=== PATIENT | male | born 1955 | race Caucasian/White ===

== ENCOUNTER 2017-03-22 22:38 | Observation (INO) | payer OTHER ==
[~2017-03-22] VITALS: Ht 190.5 cm; Wt 78.0 kg
[2017-03-22 22:47] VITALS: BP 88/52; PULSE 74; RESP 16; O2SAT 97
[2017-03-22] MEDS ORDERED: SODIUM CHLOR 0.9% 1000 ML INJ 1,000 ML IV ONE ×2 (23:01→23:15)
[2017-03-22 23:12] VITALS: BP 98/51
[2017-03-22] MEDS ORDERED: SODIUM CHLORIDE 0.9% FLUSH 10 ML FLUSH IVF PRN (23:15)
[2017-03-22] MEDS ORDERED: ONDANSETRON HCL 4 MG/2 ML VIAL IVP ONE (23:15)
[2017-03-22 23:20] VITALS: RESP 18
--- NOTE | 2017-03-22 23:31 | RADRPT ---
EXAM DATE/TIME: 03/22/2017 23:17 [facility] COMPARISON: No previous studies available for comparison. INDICATIONS : Dizziness. RADIATION DOSE: 43.28 CTDIvol (mGy) MEDICAL HISTORY : None SURGICAL HISTORY : None. ENCOUNTER: Initial ACUITY: 1 day PAIN SCALE: 0/10 LOCATION: cranial TECHNIQUE: Multiple contiguous axial images were obtained of the head. Using automated exposure control and adj ustment of the mA and/or kV according to patient size, radiation dose was kept as low as reasonably a chievable to obtain optimal diagnostic quality images. FINDINGS: CEREBRUM: There is mild atrophy. The ventricles are normal for age. No evidence of midline shift, mass lesion, hemorrhage or acute infarction. No extra-axial fluid collections are seen. POSTERIOR FOSSA: The cerebellum and brainstem are intact. The 4th ventricle is midline. The cerebellopontine angle i s unremarkable. EXTRACRANIAL: The visualized portion of the orbits is intact. Artificial globe on the left. SKULL: The calvaria is intact. No evidence of skull fracture. CONCLUSION: No acute intracranial abnormality. Mild atrophy. Harrison Mcnulty MD on March 22, 2017 at 23:28 Board Certified Radiologist. This report was verified electronically.
[2017-03-22 23:43] LABS: AUTOMATED NEUTROPHIL # 5.4 TH/MM3 (1.8-7.7); BASOPHIL % 0.4 % (0.0-2.0); EOSINOPHIL # 0.1 TH/MM3 (0-0.4); HEMATOCRIT 43.1 % (39.0-51.0); HEMO FLAGS DIFF FINAL; LYMPH % 26.3 % (9.0-44.0); LYMPHOCYTE # 2.3 TH/MM3 (1.0-4.8); MEAN CELL VOLUME 86.9 FL (80.0-100.0); MEAN CORPUSCULAR HEMOGLOBIN 29.4 PG (27.0-34.0); MEAN CORPUSCULAR HGB CONC 33.8 % (32.0-36.0); MONO % 10.9 % (0.0-8.0); NEUT % 61.4 % (16.0-70.0); PLATELET COUNT 149 TH/MM3 (150-450); RED BLOOD COUNT 4.96 MIL/MM3 (4.50-5.90); RED CELL DISTRIBUTION WIDTH 13.5 % (11.6-17.2); WHITE BLOOD COUNT 8.9 TH/MM3 (4.0-11.0)
[2017-03-22 23:48] LABS: APTT (PATIENT) 24.1 SEC (24.3-30.1); PROTHROMBIN TIME - PATIENT 11.5 SEC (9.8-11.6)
[2017-03-22 23:53] VITALS: BP 99/56; PULSE 75; RESP 16; TEMP 97.9; O2SAT 98
--- NOTE | 2017-03-22 23:56 | RADRPT ---
EXAM DATE/TIME: 03/22/2017 23:19 [facility] COMPARISON: No previous studies available for comparison. INDICATIONS : Syncopal episode. MEDICAL HISTORY : None. SURGICAL HISTORY : None. ENCOUNTER: Initial ACUITY: 1 day PAIN SCORE: 0/10 LOCATION: Bilateral chest FINDINGS: A single view of the chest demonstrates the lungs to be symmetrically aerated without evidence of mas s, infiltrate or effusion. The cardiomediastinal contours are unremarkable. Healed fractures of the right fourth, fifth and sixth ribs. CONCLUSION: No evidence of acute cardiopulmonary disease. Old right rib fractures. Harrison Mcnulty MD on March 22, 2017 at 23:53 Board Certified Radiologist. This report was verified electronically.
[2017-03-23] VITALS (7 sets, daily range): BP systolic 114–143; BP diastolic 55–78; PULSE 77–84; RESP 18–20; TEMP 97.2–97.6; O2SAT 95–98
[2017-03-23 00:04] LABS: ALT (GPT) 35 U/L (12-78); ANION GAP 16 MEQ/L (5-15); AST (GOT) 28 U/L (15-37); BICARBONATE 18.2 MEQ/L (21.0-32.0); BLOOD UREA NITROGEN 29 MG/DL (7-18); CHLORIDE 111 MEQ/L (98-107); GLOMERULAR FILTRATION RATE 38 ML/MIN (>89); POTASSIUM 3.5 MEQ/L (3.5-5.1); SODIUM (NA) 145 MEQ/L (136-145)
[2017-03-23 00:08] LABS: ALKALINE PHOSPHATASE 53 U/L (45-117); CREATINE KINASE 421 U/L (39-308); TOTAL BILIRUBIN ADULT 0.7 MG/DL (0.2-1.0)
[2017-03-23 00:27] LABS: CKMB 3.7 NG/ML (0.5-3.6)
[2017-03-23] MEDS ORDERED: SODIUM CHLOR 0.9% 1000 ML INJ 1,000 ML IV ONE (00:30)
--- NOTE | 2017-03-23 00:41 | PD ---
HPI Chief Complaint: Syncope/Near-Syncope Time Seen by Provider: 23:01 Travel History International Travel<30 days: No Contact w/Intl Traveler<30days: No Traveled to known affect area: No History of Present Illness HPI 61-year-old male presents to the emergency department by EMS transport from his daughter's wedding where he was witnessed to have a syncopal episode. No seizure activity was noted. No trauma was noted. Patient reportedly has been very anxious about the event has had poor oral intake and poor dietary intake and today was drinking alcohol when he complained while sitting down of not feeling well and sure thereafter he was witnessed to have had a syncopal episode. Patient was assisted to the floor by bystanders. estimates that he was unresponsive although breathing for several minutes may be up to 5-10. EMS arrived and reported that there was no injury. Patient was noted to be hypotensive and was given a liter of normal saline in route to the hospital. According to the patient had a similar episode approximately 4 months ago in November. [facility] Past Medical History Immunizations Current: Yes Tetanus Vaccination: Unknown Influenza Vaccination: No Social History Alcohol Use: Yes (socially) Tobacco Use: No Substance Use: No Allergies-Medications (Allergen,Severity, Reaction): Coded Allergies: Codeine (Verified Allergy, Severe, Arthritis, 03/23/17) Reported Meds & Prescriptions Reported Meds & Active Scripts Active No Active Prescriptions or Reported Medications Physical Exam Narrative GENERAL: Well-developed ill-appearing male in no respiratory distress; GCS 15 SKIN: Warm and dry. HEAD: Atraumatic. Normocephalic. EYES: Pupils equal and round. No scleral icterus. No injection or drainage. ENT: No nasal bleeding or discharge. Mucous membranes pink and moist. NECK: Trachea midline. No JVD. CARDIOVASCULAR: Regular rate and rhythm. RESPIRATORY: No accessory muscle use. Clear to auscultation. Breath sounds equal bilaterally. GASTROINTESTINAL: Abdomen soft, non-tender, nondistended. Hepatic and splenic margins not palpable. MUSCULOSKELETAL: Extremities without clubbing, cyanosis, or edema. No obvious deformities. NEUROLOGICAL: Awake and alert. No obvious cranial nerve deficits. Motor grossly within normal limits. Five out of 5 muscle strength in the arms and legs. Normal speech. PSYCHIATRIC: Appropriate mood and affect; insight and judgment normal. Data Data Last Documented VS Vital Signs Date Time Temp Pulse Resp B/P Pulse Ox O2 Delivery O2 Flow Rate FiO2 03/23/17 00:59 114/58 03/22/17 23:53 97.9 75 16 98 Orders Electrocardiogram (03/22/17:) Complete Blood Count With Diff (03/22/17 23:) Comprehensive Metabolic Panel (03/22/17:) Magnesium (Mg) (03/22/17 23:01) Ckmb (Isoenzyme) Profile (03/22/17:) Troponin I (03/22/17:) Act Partial Throm Time (Ptt) (03/22/17:) Prothrombin Time / Inr (Pt) (03/22/17:) Ua Includes Microscopic (03/22/17:) Chest, Single Ap (03/22/17:) Ct Brain W/O Iv Contrast(Rout) (03/22/17:) Blood Glucose (03/22/17:) Ecg Monitoring (03/22/17:) Iv Access Insert/Monitor (03/22/17:) Oximetry (03/22/17 23:) Ondansetron Inj (Zofran Inj) (03/22/17 23:15) Sodium Chloride 0.9% Flush (Ns Flush) (03/22/17 23:15) Sodium Chlor 0.9% 1000 Ml Inj (Ns 1000 M (03/22/17 23:01) Sodium Chlor 0.9% 1000 Ml Inj (Ns 1000 M (03/22/17 23:15) Alcohol (Ethanol) (03/22/17 23:01) CKMB (03/22/17 23:05) CKMB% (03/22/17 23:05) Sodium Chlor 0.9% 1000 Ml Inj (Ns 1000 M (03/23/17 00:30) Lactic Acid (03/23/17 00:22) Drug Screen, Random Urine (03/23/17 00:25) Place In Observation (03/23/17 ) Code Status (03/23/17 01:09) Vital Signs (Adult) Q4H (03/23/17 01:09) Activity Oob With Assistance (03/23/17 01:09) Otologist / Telemetry .CONTINUOUS (03/23/17 01:09) Diet Heart Healthy (03/23/17 Breakfast) Sodium Chloride 0.9% Flush (Ns Flush) (03/23/17 01:15) Sodium Chloride 0.9% Flush (Ns Flush) (03/23/17 09:00) Acetaminophen (Tylenol) (03/23/17 01:15) Ondansetron Inj (Zofran Inj) (03/23/17 01:15) Magnesium Hydroxide Liq (Milk Of Magnesi (03/23/17 01:15) Basic Metabolic Panel (Bmp) (03/24/17 06:00) Complete Blood Count With Diff (03/24/17 06:00) Electrocardiogram (03/23/17 01:09) Pt Request For Service (03/23/17 01:09) Scd Bilateral/Knee High BERYL.BID (03/23/17 01:09) Naloxone Inj (Narcan Inj) (03/23/17 01:15) 1/2 Ns + Kcl 20 Meq Inj (1/2 Ns + Kcl 20 (03/23/17 01:15) Echo 2d Comp W/Dopp(Routine) (03/23/17 ) Holter Monitor Recording (03/23/17 ) Us Carotid Arteries Comp Bilat (03/23/17 ) Thyroid Stimulating Hormone (03/23/17 01:14) Free Thyroxine (T4) (03/23/17 01:14) Rapid Plasma Regin (Rpr) W Ttr (03/23/17 01:14) Vitamin B12 (03/23/17 01:14) Folate, Serum (03/23/17 01:14) Ammonia (03/23/17 01:14) Lorazepam Inj (Ativan Inj) (03/23/17 01:15) Eeg Study (03/23/17 ) Admit Order (Ed Use Only) (03/23/17 ) ^ Saline Lock (03/23/17 01:22) Resp Oxygen Maksim C Titrat 1-4 L (03/23/17 ) Notify Dr: Other (03/23/17 01:22) Sodium Chloride 0.9% Flush (Ns Flush) (03/23/17 09:00) Sodium Chloride 0.9% Flush (Ns Flush) (03/23/17 01:30) Labs Laboratory Tests Test 03/22/17 03/23/17 03/23/17 23:05 00:45 01:00 Prothrombin Time 11.5 SEC Prothromb Time International 1.0 RATIO Ratio Activated Partial 24.1 SEC Thromboplast Time White Blood Count 8.9 TH/MM3 Red Blood Count 4.96 MIL/MM3 Hemoglobin 14.6 GM/DL Hematocrit 43.1 % Mean Corpuscular Volume 86.9 FL Mean Corpuscular Hemoglobin 29.4 PG Mean Corpuscular Hemoglobin 33.8 % Concent Red Cell Distribution Width 13.5 % Platelet Count 149 TH/MM3 Mean Platelet Volume 8.2 FL Neutrophils (%) (Auto) 61.4 % Lymphocytes (%) (Auto) 26.3 % Monocytes (%) (Auto) 10.9 % Eosinophils (%) (Auto) 1.0 % Basophils (%) (Auto) 0.4 % Neutrophils # (Auto) 5.4 TH/MM3 Lymphocytes # (Auto) 2.3 TH/MM3 Monocytes # (Auto) 1.0 TH/MM3 Eosinophils # (Auto) 0.1 TH/MM3 Basophils # (Auto) 0.0 TH/MM3 CBC Comment DIFF FINAL Differential Comment Sodium Level 145 MEQ/L Potassium Level 3.5 MEQ/L Chloride Level 111 MEQ/L Carbon Dioxide Level 18.2 MEQ/L Anion Gap 16 MEQ/L Blood Urea Nitrogen 29 MG/DL Creatinine 1.83 MG/DL Estimat Glomerular Filtration 38 ML/MIN Rate Random Glucose 94 MG/DL Calcium Level 8.4 MG/DL Magnesium Level 2.0 MG/DL Total Bilirubin 0.7 MG/DL Aspartate Amino Transf 28 U/L (AST/SGOT) Alanine Aminotransferase 35 U/L (ALT/SGPT) Alkaline Phosphatase 53 U/L Total Creatine Kinase 421 U/L Creatine Kinase MB 3.7 NG/ML Creatine Kinase MB % 0.9 % Troponin I LESS THAN 0.02 NG/ML Total Protein 6.5 GM/DL Albumin 3.9 GM/DL Vitamin B12 Level 273 PG/ML Folate 11.3 NG/ML Free Thyroxine 1.11 NG/DL Thyroid Stimulating Hormone 1.350 uIU/ML 3rd Gen Ethyl Alcohol Level 120 MG/DL Lactic Acid Level 6.0 mmol/L Urine Color YELLOW Urine Turbidity CLEAR Urine pH 5.0 Urine Specific [place] 1.014 Urine Protein TRACE mg/dL Urine Glucose (UA) NEG mg/dL Urine Ketones TRACE mg/dL Urine Occult Blood NEG Urine Nitrite NEG Urine Bilirubin NEG Urine Urobilinogen LESS THAN 2.0 MG/DL Urine Leukocyte Esterase NEG Urine RBC 3 /hpf Urine WBC 1 /hpf Urine Hyaline Casts 17 /lpf Microscopic Urinalysis Comment Urine Opiates Screen NEG Urine Barbiturates Screen NEG Urine Amphetamines Screen NEG Urine Benzodiazepines Screen NEG Urine Cocaine Screen NEG Urine Cannabinoids Screen NEG MDM Medical Decision Making Medical Screen Exam Complete: Yes Emergency Medical Condition: Yes Medical Record Reviewed: Yes Interpretation(s) EKG: Normal sinus rhythm rate [address] elevation or injury pattern change noted age-indeterminate Q wave inferiorly in lead 3 as well as QS noted septally in V1 V2 Vital Signs Date Time Temp Pulse Resp B/P Pulse Ox O2 Delivery O2 Flow Rate FiO2 03/23/17 00:59 114/58 03/22/17 23:53 97.9 75 16 99/56 98 03/22/17 23:20 18 03/22/17 23:12 98/51 03/22/17 22:47 74 16 88/[address] 03/22/17 2301 Signed Impressions: Service Date/Time: Wednesday, March 22, 2017 23:17 - CONCLUSION: No acute intracranial abnormality. Mild atrophy. Harrison Mcnulty MD CBC & BMP Diagram 03/22/17 23:05 Differential Diagnosis Syncope, arrhythmia, dehydration, ACS, seizure, ICH, CHI, TIA, CVA Narrative Course Patient presents after 1 L of normal sinus rhythm remains hypotensive; additional IV fluids administered basic labs obtained EKG performed which reveals sinus rhythm no acute ST elevation or injury pattern change age- indeterminate inferior infarct with Q waves in lead 3 and aVF as well as QS noted V1 V2 septally CT brain noncontrast ordered and patient sent for imaging study which reveals no acute abnormality by reading radiologist Patient has had total 3 L of normal saline bolus 2 to the emergency department in one by EMS remains hypotensive with systolic pressure in the 90s; patient still appears quite dry mentation has improved however we'll administered additional liter of normal saline as well as admit patient for observation to [facility] provider and lactic acid ordered Fourth liter of normal saline administered blood pressure is now in the 110-114 range on systolic blood pressure patient's mentation is again improved patient is standing at bedside trying to produce a urine; patient denies any complaints of head pain neck pain chest pain abdominal pain denies shortness of breath there is no apparent sweating and has had no nausea or vomiting. Patient has had a normal neurologic exam as far as mentation and no focal findings. Physician Communication Physician Communication case discussed with DR Avery--will admit for ongoing fluid hydration and eeg to his service Diagnosis Primary Impression: Syncope and collapse Additional Impression: Alcohol ingestion Admitting Information Admitting Physician Requests: Observation Scripts No Active Prescriptions or Reported Meds Palmira Euceda MD Mar 23, 2017 00:41
[2017-03-23] MEDS ORDERED: ACETAMINOPHEN 325 MG TAB PO PRN (01:15)
[2017-03-23] MEDS ORDERED: MAGNESIUM HYDROXIDE SUSP 30 ML CUP PO PRN (01:15)
[2017-03-23] MEDS ORDERED: SODIUM CHLORIDE 0.9% FLUSH 10 ML FLUSH IV FLUSH PRN (01:15)
[2017-03-23] MEDS ORDERED: NALOXONE HCL 0.4 MG/ML AMP IV PRN (01:15)
[2017-03-23] MEDS ORDERED: ONDANSETRON HCL 4 MG/2 ML VIAL IVP PRN (01:15)
[2017-03-23] MEDS ORDERED: LORazepam 2 MG/ML VIAL IV PUSH PRN (01:15)
[2017-03-23 01:20] LABS: BLOOD, URINE NEG (NEG); GLUCOSE,URINE NEG (NEG); HYALINE CAST, URINE 17 /lpf (RARE); KETONE, URINE TRACE mg/dL (NEG); NITRITE,URINE NEG (NEG); URINE COLOR YELLOW (YELLW/STRAW)
[2017-03-23] MEDS ORDERED: SODIUM CHLORIDE 0.9% FLUSH 10 ML FLUSH IVF PRN (01:30)
[2017-03-23 01:50] LABS: AMPHETAMINE, URINE NEG (NEG); BARBITURATES, URINE NEG (NEG); COCAINE, URINE NEG (NEG)
[2017-03-23] MEDS: 1/2 NS + KCL 20 MEQ INJ 1,000 ML IV SCH ×2 (01:52→13:10)
[2017-03-23 02:14] LABS: FREE T4 1.11 NG/DL (0.76-1.46)
[2017-03-23] MEDS ORDERED: SODIUM CHLORIDE 0.9% FLUSH 10 ML FLUSH IV FLUSH SCH ×2 (09:00)
--- NOTE | 2017-03-23 09:52 | RADRPT ---
EXAM DATE/TIME: 03/23/2017 07:28 [facility] COMPARISON: No previous studies available for comparison. INDICATIONS : Syncope. MEDICAL HISTORY : Syncope. SURGICAL HISTORY : None. ENCOUNTER: Initial ACUITY: 1 day PAIN SCORE: 12/03 LOCATION: Bilateral neck PEAK SYSTOLIC VELOCITIES (cm/sec): ICA/CCA RATIO: Right: 0.8 Left: 0.9 ICA: Right: 92 Left: 96 CCA: Right: 119 Left: 110 ECA: Right: 151 Left: 149 VERTEBRAL: Right: 57 antegrade Left: 69 antegrade Elevated flow velocities and ICA/CCA ratios have been found to correlate with increased degrees of vessel stenosis, calculated as percentage of diameter relative to a normal segment of distal ICA/CCA FINDINGS: RIGHT CAROTID: No significant stenosis is visualized. The waveforms are within normal limits. LEFT CAROTID: No significant stenosis is visualized. The waveforms are within normal limits. VERTEBRAL ARTERIES: Antegrade flow is seen in both vertebral arteries. MISCELLANEOUS: None. CONCLUSION: Carotid ultrasound within normal limits. Wesley Kaba MD on March 23, 2017 at 9:50 Board Certified Radiologist. This report was verified electronically.
[2017-03-23] MEDS ORDERED: LISI-515 PO (15:04)
[2017-03-23] MEDS ORDERED: HYDR25TA5 PO (15:04)
[2017-03-23] MEDS ORDERED: DOXY0.02 PO (15:04)
[2017-03-23] MEDS ORDERED: CLON0.2T PO (15:04)
[2017-03-23] MEDS ORDERED: METF1000 PO (15:04)
--- NOTE | 2017-03-23 15:12 | HHI.HP ---
HPI Service [facility] Primary Care Physician Dr. Todd Altamirano Admission Diagnosis syncope Chief Complaint: Syncope Travel History International Travel<30 Days: No Contact w/Intl Traveler <30 Da: No Traveled to Known Affected Are: No History of Present Illness Mr. Espinoza is a 61 y/o WM with diabetes mellitus, HTN and hyperlipidemia who was brought to the ED at [facility] on 03/22/17 after a syncopal episode. Pt states that his daughters wedding was yesterday and he had been working outside consistently for the last several days preparing for the wedding, which was an outdoor wedding. He states that he had not been eating and drinking well over the last few days because he had been so busy. Yesterday morning he woke up at 0400 and went to the wedding site to finish working on a project and then came home around 1300 and took his BP medications (Lisinopril and HCTZ) because he had forgotten to take them earlier that morning. He had not had much of anything to eat or drink yesterday morning or afternoon. Then after the wedding ceremony he did eat a little and then had a few alcoholic beverages. He states that he wasn't feeling well and then sat down and the next thing he remembered he was in the ER at the hospital. He states that he was told he was passed out for several minutes. He does recall when the paramedics arrived but states that he only remembers bits and pieces of that. He denies any dizziness, headache, chest pain, SOB or palpitations prior to his syncopal episode. According to the ED notes the pt was noted to be hypotensive by EMS and was given a liter of normal saline in route to the hospital. In the ED his BP was 88/52. Pt was given an additional 3L of NS in the ED and was continued on 1/2 NS with 20meq of K+ @ 84mL/hr upon admission. The pts labs in the ED noted evidence of dehydration with Cr 1.83 and outpt labs reviewed noted his creatnine is normally at 1.0 or less. Pt was also noted to have a Lactic acid of 6.0, CK 421 and CK-MB 3.7. Head CT was negative for any acute abnormality. Carotid US was negative. CXR was negative. Today pt is feeling much better and feels back at his baseline. He is anxious to go home. Review of Systems Constitutional: DENIES: Diaphoretic episodes, Fever, Chills Eyes: DENIES: Vision loss Ears, nose, mouth, throat: DENIES: Hearing loss, Vertigo Respiratory: DENIES: Cough, Sputum production, Shortness of breath Cardiovascular: DENIES: Chest pain, Palpitations, Lower Extremity Edema Gastrointestinal: DENIES: Abdominal pain, Constipation, Diarrhea, Nausea Genitourinary: DENIES: Hematuria, Dysuria Musculoskeletal: DENIES: Joint pain Integumentary: DENIES: Rash Neurologic: DENIES: Headache Psychiatric: DENIES: Confusion Other Syncope Past Family Social History Past Medical History Diabetes, type 2 HTN Hyperlipidemia Rosacea Denies any hx of seizures, CAD, cancer, COPD, asthma. Past Surgical History Repair of retinal detachment with scleral buckle cholecystectomy Reported Medications Clonidine (Clonidine HCl) 0.2 Mg Tab 0.2 Mg PO HS Hydrochlorothiazide 25 Mg Tab 25 Mg PO DAILY Lisinopril 20 Mg Tab 20 Mg PO DAILY Doxycycline (Doxycycline (Monohydrate)) 50 Mg Cap 50 Mg PO BID Metformin (Metformin HCl) 1,000 Mg Tab 1,000 Mg PO BIDPC With meals Allergies: Coded Allergies: Codeine (Verified Allergy, Severe, Arthritis, 03/23/17) Family History Father from gastric cancer in his 50's Social History (+)Social alcohol use Denies any tobacco or illicit drug use Physical Exam Vital Signs Vital Signs Date Time Temp Pulse Resp B/P Pulse Ox O2 Delivery O2 Flow Rate FiO2 03/23/17 12:05 97.6 77 18 143/78 95 03/23/17 09:39 97.2 84 18 133/68 96 03/23/17 04:00 97.5 80 20 118/57 95 03/23/17 02:45 79 03/23/17 01:39 98 03/23/17 00:59 114/58 03/22/17 23:53 97.9 75 16 99/56 98 03/22/17 23:20 18 03/22/17 23:12 98/51 03/22/17 22:47 74 16 88/52 97 Physical Exam GENERAL: This is a well-nourished, well-developed patient, in no apparent distress. HEENT: Atraumatic. Normocephalic. No temporal or scalp tenderness. No scleral icterus. Airway patent. NECK: Trachea midline, supple, nontender. CARDIO: Regular. RESP: CTA bilaterally. No wheezes, rales, or rhonchi. ABD: +BS, soft, non-tender, nondistended. EXT: Extremities without clubbing, cyanosis, or edema. NEURO: Awake and alert. Motor and sensory grossly within normal limits. Normal speech. Laboratory Laboratory Tests Test 03/22/17 03/23/17 03/23/17 03/23/17 23:05 00:45 01:00 01:35 Prothrombin Time 11.5 Prothromb Time International 1.0 Ratio Activated Partial 24.1 Thromboplast Time White Blood Count 8.9 Red Blood Count 4.96 Hemoglobin 14.6 Hematocrit 43.1 Mean Corpuscular Volume 86.9 Mean Corpuscular Hemoglobin 29.4 Mean Corpuscular Hemoglobin 33.8 Concent Red Cell Distribution Width 13.5 Platelet Count 149 Mean Platelet Volume 8.2 Neutrophils (%) (Auto) 61.4 Lymphocytes (%) (Auto) 26.3 Monocytes (%) (Auto) 10.9 Eosinophils (%) (Auto) 1.0 Basophils (%) (Auto) 0.4 Neutrophils # (Auto) 5.4 Lymphocytes # (Auto) 2.3 Monocytes # (Auto) 1.0 Eosinophils # (Auto) 0.1 Basophils # (Auto) 0.0 CBC Comment DIFF FINAL Differential Comment Sodium Level 145 Potassium Level 3.5 Chloride Level 111 Carbon Dioxide Level 18.2 Anion Gap 16 Blood Urea Nitrogen 29 Creatinine 1.83 Estimat Glomerular Filtration 38 Rate Random Glucose 94 Calcium Level 8.4 Magnesium Level 2.0 Total Bilirubin 0.7 Aspartate Amino Transf 28 (AST/SGOT) Alanine Aminotransferase 35 (ALT/SGPT) Alkaline Phosphatase 53 Total Creatine Kinase 421 Creatine Kinase MB 3.7 Creatine Kinase MB % 0.9 Troponin I LESS THAN 0.02 Total Protein 6.5 Albumin 3.9 Vitamin B12 Level 273 Folate 11.3 Free Thyroxine 1.11 Thyroid Stimulating Hormone 1.350 3rd Gen Ethyl Alcohol Level 120 Lactic Acid Level 6.0 Urine Color YELLOW Urine Turbidity CLEAR Urine pH 5.0 Urine Specific [place] 1.014 Urine Protein TRACE Urine Glucose (UA) NEG Urine Ketones TRACE Urine Occult Blood NEG Urine Nitrite NEG Urine Bilirubin NEG Urine Urobilinogen LESS THAN 2.0 Urine Leukocyte Esterase NEG Urine RBC 3 Urine WBC 1 Urine Hyaline Casts 17 Microscopic Urinalysis Comment Urine Opiates Screen NEG Urine Barbiturates Screen NEG Urine Amphetamines Screen NEG Urine Benzodiazepines Screen NEG Urine Cocaine Screen NEG Urine Cannabinoids Screen NEG Ammonia 30 Result Diagram: 03/22/[id number] Imaging Last Impressions Carotid Artery Ultrasound 03/23/17 0000 Signed Impressions: Service Date/Time: Thursday, March 23, 2017 07:28 - CONCLUSION: Carotid ultrasound within normal limits. Wesley Kaba MD Head CT 03/22/172300 Signed Impressions: Service Date/Time: Wednesday, March 22, 2017 23:17 - CONCLUSION: No acute intracranial abnormality. Mild atrophy. Harrison Mcnulty MD Chest X-Ray 03/22/172300 Signed Impressions: Service Date/Time: Wednesday, March 22, 2017 23:19 - CONCLUSION: No evidence of acute cardiopulmonary disease. Old right rib fractures. Harrison Mcnulty MD Septic Shock Reassessment Heart: Regular rate and rhythm Lungs: Clear Skin: Warm Peripheral Pulses: Bounding Right Radial Bounding Left Radial Bounding Right Popliteal Bounding Left Popliteal Bounding Right Dorsalis Pedis Bounding Left Dorsalis Pedis Bounding Right Posterior Tibial Bounding Left Posterior Tibial Assessment and Plan Problem List: (1) Syncope and collapse Status: Acute Plan: - Pt is a 61 y/o male with HTN, and diabetes who was brought to the ED on after a syncopal episode which was likely secondary to hypotension and dehydration. - The pt has been working outside consistently for the last several days preparing for his daughters wedding, which took place yesterday. He had not been eating and drinking well over the last few days but was still taking his home medications. - He denies any dizziness, headache, chest pain, SOB or palpitations prior to his syncopal episode. - The pt was noted to be hypotensive reported by EMS and was given a liter of normal saline in route to the hospital. In the ED his BP was 88/52 and he was given an additional 3L of NS in the ED and was continued on 1/2 NS with 20meq of K+ @ 84mL/hr upon admission. - The pts labs in the ED noted evidence of dehydration with Cr 1.83 and outpt labs reviewed noted his creatinine is normally at 1.0 or less. - Pt was also noted to have a Lactic acid of 6.0, CK 421 and CK-MB 3.7. - Head CT was negative for any acute abnormality. - Carotid US was negative. - CXR was negative. - Pt reports a similar episode in November 2016 when he had a flu-like illness and had not been eating or drinking well for over a week and he had a syncopal episode and was hospitalized at [facility]. He reports workup was negative then but there was not any noted in [facility] EHR to review from this hospitalization. - EEG was performed but not read yet. - Holter Monitor is in place but will not be completed until tomorrow. - 2D echo has not been performed and pt does not want to stay to have this performed. - Pt is feeling better today and wants to be discharged home today. - His BP is much better this afternoon, systolic up into the 140's - We will repeat his BMP, Lactic acid and Ck/CKMB today to ensure improvement in his labs. - If those look ok he will be discharged home later this evening. - Pt can resume him Clonidine this evening if his BP is stable at home and resume his Lisinopril in AM if BP is stable. Pt is to hold his HCTZ. He is to monitor his BP at home and report these to his PCP. He states that he has lost 20lbs after his flu-like illenss in November so his BP requirements may have changed. - Pt will need to followup with his PCP in 1 week. (2) Dehydration Status: Acute Plan: - See above. (3) HTN (hypertension), benign Status: Chronic Plan: - See above. (4) Diabetes mellitus Status: Chronic Plan: - Pt is to resume his Metformin 1000mg BID upon discharge. (5) Hyperlipidemia Status: Chronic Assessment and Plan Patient examined. Assessment and plan formulated with Sally Baeza PA-C. I agree with the above. Pt was hypotensive on admission. No leukocytosis. PT NOT septic by criteria. lactic acid trending down. likely pt's elevated lactic acid is reflective of hypotension. Pt was working outside and became dehydrated. Then he took his blood pressure medication and became hypotensive. Pt is tolerating PO intake. I will discharge to home. f/u with PCP in 1 week. return to ER for any problems. Problem Qualifiers (1) Diabetes mellitus: Sally Baeza Mar 23, 2017 15:12 Amaury Avery DO Mar 23, 2017 17:56
--- NOTE | 2017-03-23 16:05 | MG ---
cc: DAMIAN CASTELLANO M.D. Lab No: Date: 03/23/2017 Age: Sex: M Race: Cc. TEST NUMBER [id number] TECHNIQUE 17 channel EEG. DESCRIPTION The background rhythm is a symmetrical alpha rhythm. The frequency is 8-10 Hz. The amplitude is about 20-30 microvolts. During drowsiness there is slowing in the theta range. There are no lateralizing features present. There are no epileptiform discharges present. There does appear to be normal sleep activity in terms of sleep spindles with further slowing in the theta range. Hyperventilation was not performed. Photic stimulation was performed with a very good symmetrical driving response posteriorly. SURGERIES Normal EEG. MD FIDEL Araujo/KK /3:50 PM /3:59 PM
--- NOTE | 2017-03-23 16:22 | HHI.DCPOC ---
Discharge Care Plan Diagnosis: (1) Syncope and collapse (2) Dehydration (3) HTN (hypertension), benign (4) Hyperlipidemia (5) Diabetes mellitus Goals to Promote Your Health - Patient is to followup with his PCP, Dr. Altamirano, within 1 week. - Patient can resume him Clonidine this evening if his BP is stable at home and resume his Lisinopril in AM if BP is stable. - Patient is to hold his HCTZ. He is to monitor his BP at home and report these to his PCP. Directions to Meet Your Goals Take your medications as prescribed Follow your dietary instruction Follow activity as directed Keep your appointments as scheduled Take your immunizations and boosters as scheduled If your symptoms worsen call your PCP, if no PCP go to Urgent Care Center or Emergency Room Smoking is Dangerous to Your Health. Avoid second hand smoke Call the 24-hour hour crisis hotline for domestic abuse at [facility] Baeza Mar 23, 2017 16:22 Amaury Avery DO March 29, 2017 19:39
[2017-03-23 17:31] LABS: ANION GAP 8 MEQ/L (5-15); BICARBONATE 25.7 MEQ/L (21.0-32.0); BLOOD UREA NITROGEN 23 MG/DL (7-18); CHLORIDE 109 MEQ/L (98-107); GLOMERULAR FILTRATION RATE 77 ML/MIN (>89); POTASSIUM 3.7 MEQ/L (3.5-5.1); SODIUM (NA) 143 MEQ/L (136-145)
[2017-03-23 17:35] LABS: CREATINE KINASE 270 U/L (39-308)
[2017-03-23 17:52] LABS: CKMB 2.5 NG/ML (0.5-3.6)
--- NOTE | 2017-03-23 18:43 | EKG ---
Date Performed: 03/23/2017 Time Performed: 01:40:03 PTAGE: 61 years EKG: Sinus rhythm SEPTAL MYOCARDIAL INFARCTION INFERIOR MYOCARDIAL INFARCTION NS T W CHANGES ABNORMAL ECG PREVIOUS TRACING : 04/30/1993 14.23 Compared to prior tracing no significant change DOCTOR: Roney Baum Interpretating Date/Time 03/23/2017 18:42:13
--- NOTE | 2017-03-23 22:28 | EKG ---
Date Performed: 03/22/2017 Time Performed: 23:03:32 PTAGE: 61 years EKG: Sinus rhythm WITH OCCASIONAL VENTRICULAR PREMATURE COMPLEXES POSSIBLE RIGHT VENTRICULAR CONDUCTION DELAY INFERIOR MYOCARDIAL INFARCTION ABNORMAL ECG Compared to the PREVIOUS TRACING inferior Q waves are new DOCTOR: Roney Baum Interpretating Date/Time 03/23/2017 22:27:06
[2017-03-24 09:30] LABS: RAPID PLASMA REAGIN SCREEN NON-REACTIVE (NON-REACTVE)
--- NOTE | 2017-03-24 16:46 | HM ---
Date Performed: 03/23/2017 Time Performed: 11:27:00 HOOKUP DATE: 03/23/17 11:27:00 AM Sun ANALYSIS START TIME: 03/23/2017 11:32:00 AM ANALYSIS END TIME: 03/24/2017 11:35:59 AM PATIENT AGE: 61 PATIENT HEIGHT PATIENT WEIGHT DRUG LIST PATIENT DIAGNOSIS: syncope TEST NARRATIVE: The patient's average heart rate was 71 BPM. No episodes of tachycardia wer e noted. Heart rates less than 50 BPM were noted 1% of the time. No pauses exceeding 2.0 seconds were noted. 2503 ventricular ectopics, which represented 3% of the total beat count, were noted. The highest ventricular ectopic frequency occurred from 02:00 PM to 03:00 PM Sun. During this time 198 VE(s) occurred. Ventricular ectopics were observed as 2489 isolated beat(s) and as 7 couplet(s) . No runs were noted. Some of the ventricular beats occurred in bigeminal cycles. 139 supravent ricular ectopics, which represented < 1% of the total beat count, were noted. The highest supraventr icular ectopic frequency occurred from 08:00 AM to 09:00 AM Mon. During this time 41 SVE(s) occurred . No episodes of ST depression (defined as -1.0 mm or more) were noted in channel 1. No episodes of ST depression (defined as -1.0 mm or more) were noted in channel 2. No episodes of ST depression (defined as -1.0 mm or more) were noted in channel 3. NO DIARY RETURNED TEST INTERPRETATION: Benign Holter monitoring. Signed by : Reynaldo Knowles
== END 2017-03-23 18:42 | disposition home or self-care (01) ==
LOC: NEPC 22:38 → NEDA 03-23 01:23 → NEPHCDU 03-23 02:42
PROVIDERS: ADMIT Hospitalist; ATTEND Hospitalist
DX: R55 Syncope and collapse (principal); I10 Essential (primary) hypertension; E86.0 Dehydration; E11.9 Type 2 diabetes mellitus without complications; E78.5 Hyperlipidemia, unspecified; Z88.5 Allergy status to narcotic agent; Z79.84 Long term (current) use of oral hypoglycemic drugs
CPT/HCPCS: 70450; 71010; 80048; 80053; 80307; 81001; 82140; 82550; 82552; 82607; 82746; 83605; 83735; 84439; 84443; 84484; 85025; 85610; 85730; 86592; 93005; 93225; 93226; 93880; 95819; 96361; 96374; 97163; 99285; G0378; G8987; G8988; J2405; J7030